=== PATIENT | female | born 1935 ===

== ENCOUNTER → 2017-02-09 | Outpatient (CLI) | payer MEDICARE | LOC: WOUNDCARE 12:29 | PROVIDERS: ATTEND Surgery | DX: I87.333 Chronic venous hypertension (idiopathic) with ulcer and inflammation of bilateral lower extremity (principal); L97.222 Non-pressure chronic ulcer of left calf with fat layer exposed | CPT/HCPCS: 11042 ==

== ENCOUNTER → 2017-02-14 | Outpatient (CLI) | payer MEDICARE | LOC: WOUNDCARE 12:59 | PROVIDERS: ATTEND Surgery | DX: I87.333 Chronic venous hypertension (idiopathic) with ulcer and inflammation of bilateral lower extremity (principal); L97.221 Non-pressure chronic ulcer of left calf limited to breakdown of skin | CPT/HCPCS: 97597 ==

== ENCOUNTER → 2017-02-22 | Outpatient (CLI) | payer MEDICARE | LOC: WOUNDCARE 12:19 | PROVIDERS: ATTEND Surgery | DX: L97.221 Non-pressure chronic ulcer of left calf limited to breakdown of skin (principal); I87.333 Chronic venous hypertension (idiopathic) with ulcer and inflammation of bilateral lower extremity; L97.222 Non-pressure chronic ulcer of left calf with fat layer exposed | CPT/HCPCS: 97597 ==

== ENCOUNTER → 2017-03-01 | Outpatient (CLI) | payer MEDICARE | LOC: WOUNDCARE 12:19 | PROVIDERS: ATTEND Surgery | DX: L97.221 Non-pressure chronic ulcer of left calf limited to breakdown of skin (principal); I87.332 Chronic venous hypertension (idiopathic) with ulcer and inflammation of left lower extremity; I87.321 Chronic venous hypertension (idiopathic) with inflammation of right lower extremity | CPT/HCPCS: 99212 ==

== ENCOUNTER → 2017-03-07 | Outpatient (CLI) | payer MEDICARE | LOC: WOUNDCARE 13:43 | PROVIDERS: ATTEND Surgery | DX: I87.332 Chronic venous hypertension (idiopathic) with ulcer and inflammation of left lower extremity (principal); L97.221 Non-pressure chronic ulcer of left calf limited to breakdown of skin; I87.321 Chronic venous hypertension (idiopathic) with inflammation of right lower extremity ==